=== PATIENT | male | born 1960 | race Caucasian/White ===

== ENCOUNTER 2025-01-24 20:14 | Inpatient (IN) | payer BC, MEDICAID, MEDICARE ==
[~2025-01-24] VITALS: Ht 165.1 cm; Wt 59.0 kg
[2025-01-24 21:03] LABS: BASOPHILS % 0.5 % (0.0-2.0); HEMOGLOBIN. 12.8 g/dL (14.0-18.0); LYMPHOCYTES % 26.5 % (20.0-50.0); MEAN CORPUSCULAR HEMOGLOBIN 32.4 pg (28.0-32.0); MEAN CORPUSCULAR HGB CONC 33.6 g/dL (31.0-37.0); MEAN CORPUSCULAR VOLUME 96.6 fL (80.0-94.0); MEAN PLATELET VOLUME 9.6 fl (7.4-10.4); MONOCYTES % 7.5 % (2.0-8.0); NEUTROPHILS % 63.5 % (40.0-76.0); PLATELET 156 x1000/uL (130-400); RED BLOOD CELL COUNT 3.93 mill/uL (4.7-6.1); RED CELL DISTRIBUTION WIDTH 12.9 % (11.6-14.6); WHITE BLOOD COUNT 7.9 x1000/uL (4.5-11.0)
[2025-01-24 21:11] LABS: CARBON DIOXIDE 29 mEq/L (21-32); CHLORIDE 103 mEq/L (98-107); POTASSIUM 4.1 mEq/L (3.5-5.1); SODIUM 140 mEq/L (136-145)
[2025-01-24 21:12] LABS: CALCIUM 8.3 mg/dL (8.7-10.4)
[2025-01-24] MEDS: VANCOMYCIN 1G PREMIX 200 ML IV SCH (21:13)
[2025-01-24] MEDS: MORPHINE SULFATE 4 MG/ML INJ (FOR IV/IM USE) IV ONE (21:13)
[2025-01-24] MEDS: LACTATED RINGERS 1,000 ML IV SCH (21:13)
[2025-01-24] MEDS: KETOROLAC 15MG/ML VIAL IV ONE (21:13)
[2025-01-24] MEDS: TETANUS, DIPHTHERIA, PERTUSSIS VAC/PF 0.5ML (>10YR OLD) IM ONE (21:15)
[2025-01-24 21:16] LABS: CREATININE 0.7 mg/dL (0.6-1.3); GLUCOSE 363 mg/dL (70-105)
[2025-01-24 21:17] LABS: TROPONIN I HIGH SENSITIVITY 8 ng/L (3.0-53); UREA NITROGEN BLOOD 10 mg/dL (9-23)
[2025-01-24 21:18] LABS: ALANINE AMINOTRANSFERASE 47 IU/L (10-49); ALBUMIN 3.5 g/dL (3.2-4.8); ASPARTATE AMINOTRANSFERASE 22 IU/L (<34); LACTIC ACID 2.9 mmol/L (0.4-2.0)
[2025-01-24 21:19] LABS: BETA HYDROXYBUTYRATE 0.1 mMol/L (0.0-0.3); BILIRUBIN TOTAL 0.3 mg/dL (0.1-1.0)
[2025-01-24 21:40] LABS: ERYTHROCYTE SEDIMENTATION RATE 12 mm/hr (0-20)
[2025-01-24] MEDS: LIDOCAINE HCL 1% 20ML VIAL INFIL ONE (22:25)
[2025-01-24] MEDS: PIPERACILLIN/TAZO 3.375G/50ML 50 ML IV SCH (23:24)
[2025-01-25] MEDS ORDERED: DEXTROSE 50% WATER 50ML SYRINGE IV PRN (03:45)
[2025-01-25] MEDS: HYDROCODONE/ACETAMINOPHEN 5/325MG TABLET PO PRN (04:04)
[2025-01-25 05:35] VITALS: BP 154/79; PULSE 70; RESP 17; TEMP 36.5
[2025-01-25] MEDS: PIPERACILLIN/TAZO 3.375G/50ML 50 ML IV SCH (06:49)
[2025-01-25] MEDS: BLOOD SUGAR DIAGNOSTIC STRIP TEST SCH (07:21)
[2025-01-25 08:00] VITALS: BP 132/79; PULSE 78; RESP 18; TEMP 36.2; O2SAT 100
[2025-01-25] MEDS: LOSARTAN 50 MG TABLET PO SCH (08:10)
[2025-01-25] MEDS: INSULIN LISPRO 100 UNITS/ML SUBCUT SCH (08:11)
[2025-01-25] MEDS: INSULIN GLARGINE 100 UNITS/ML SUBCUT SCH (09:12)
[2025-01-25] MEDS: VANCOMYCIN 750MG/250ML IV SCH (09:49)
[2025-01-25 10:49] LABS: BASOPHILS % 0.2 % (0.0-2.0); EOSINOPHILS % 2.2 % (0.0-5.0); HEMATOCRIT. 37.6 % (42.0-52.0); HEMOGLOBIN. 12.5 g/dL (14.0-18.0); LYMPHOCYTES % 20.1 % (20.0-50.0); MEAN CORPUSCULAR HEMOGLOBIN 31.5 pg (28.0-32.0); MEAN CORPUSCULAR HGB CONC 33.1 g/dL (31.0-37.0); MEAN CORPUSCULAR VOLUME 95.1 fL (80.0-94.0); MEAN PLATELET VOLUME 9.4 fl (7.4-10.4); MONOCYTES % 8.2 % (2.0-8.0); NEUTROPHILS % 69.3 % (40.0-76.0); PLATELET 144 x1000/uL (130-400); RED BLOOD CELL COUNT 3.96 mill/uL (4.7-6.1); RED CELL DISTRIBUTION WIDTH 12.9 % (11.6-14.6); WHITE BLOOD COUNT 7.2 x1000/uL (4.5-11.0)
[2025-01-25 11:01] LABS: CHLORIDE 101 mEq/L (98-107); POTASSIUM 3.8 mEq/L (3.5-5.1); SODIUM 138 mEq/L (136-145)
[2025-01-25 11:02] LABS: CALCIUM 8.6 mg/dL (8.7-10.4); CARBON DIOXIDE 32 mEq/L (21-32)
[2025-01-25 11:07] LABS: CREATININE 0.7 mg/dL (0.6-1.3); GLUCOSE 278 mg/dL (70-105); TRIGLYCERIDE 68 mg/dL (0-150); UREA NITROGEN BLOOD 7 mg/dL (9-23)
[2025-01-25 11:08] LABS: LDL CHOLESTEROL 35 mg/dL (5-100)
[2025-01-25 11:09] LABS: CHOLESTEROL 107 mg/dL (<200); HDL CHOLESTEROL 53 mg/dL (>55)
[2025-01-25 12:00] VITALS: BP 138/78; PULSE 77; RESP 18; TEMP 36.2; O2SAT 100
[2025-01-25] MEDS ORDERED: NALOXONE HCL 0.4MG/ML VIAL IV PRN (15:45)
[2025-01-25] MEDS: HYDROCODONE/ACETAMINOPHEN 10/325MG TABLET PO PRN (15:56)
[2025-01-25 16:00] VITALS: BP 146/76; PULSE 72; RESP 19; TEMP 36.3; O2SAT 100
[2025-01-25 20:00] VITALS: BP 145/81; PULSE 92; RESP 17; TEMP 36.4; O2SAT 95
[2025-01-26] VITALS: BP 100/66; PULSE 83; RESP 18; TEMP 36.4; O2SAT 97
[2025-01-26 04:00] VITALS: BP 105/60; PULSE 85; RESP 17; TEMP 36.4; O2SAT 97
[2025-01-26 06:28] LABS: CHLORIDE 102 mEq/L (98-107); POTASSIUM 3.7 mEq/L (3.5-5.1); SODIUM 140 mEq/L (136-145)
[2025-01-26 06:29] LABS: CALCIUM 8.5 mg/dL (8.7-10.4); CARBON DIOXIDE 31 mEq/L (21-32)
[2025-01-26 06:34] LABS: CREATININE 0.5 mg/dL (0.6-1.3); UREA NITROGEN BLOOD 7 mg/dL (9-23)
[2025-01-26 07:01] LABS: GLUCOSE 112 mg/dL (70-105)
[2025-01-26 08:00] VITALS: BP 97/51; PULSE 74; RESP 18; TEMP 36.4; O2SAT 97
[2025-01-26 12:00] VITALS: BP 126/69; PULSE 68; RESP 19; TEMP 36.1; O2SAT 99
[2025-01-26 16:00] VITALS: BP 136/77; PULSE 76; RESP 18; TEMP 36.3; O2SAT 97
[2025-01-26 20:00] VITALS: BP 150/76; PULSE 67; RESP 19; TEMP 36.1; O2SAT 96
[2025-01-26] MEDS: VANCOMYCIN 1GM/200ML PMX (BAXTER) IV SCH (22:15)
[2025-01-27] VITALS: BP 143/68; PULSE 80; RESP 16; TEMP 37.3; O2SAT 100
[2025-01-27 04:00] VITALS: BP 106/55; PULSE 74; RESP 18; TEMP 36.9; O2SAT 100
[2025-01-27 08:00] VITALS: BP 131/72; PULSE 73; RESP 18; TEMP 36.8; O2SAT 98
[2025-01-27 12:00] VITALS: BP 144/67; PULSE 76; RESP 18; TEMP 36.3; O2SAT 97
[2025-01-27 16:00] VITALS: BP 133/76; PULSE 74; RESP 18; TEMP 36.4; O2SAT 99
[2025-01-27 20:00] VITALS: BP 123/64; PULSE 84; RESP 20; TEMP 36.2; O2SAT 98
[2025-01-27] MEDS: BACITRACIN/POLYMYXIN B SULFATE OINT 15GM TOP SCH (21:00)
[2025-01-28] VITALS: BP 150/63; PULSE 83; RESP 20; TEMP 36.2; O2SAT 98
[2025-01-28 04:00] VITALS: BP 148/81; PULSE 78; RESP 20; TEMP 36.2; O2SAT 99
[2025-01-28 08:00] VITALS: BP 134/70; PULSE 80; RESP 18; TEMP 35.8; O2SAT 98
[2025-01-28] MEDS ORDERED: AMOX1TAB16 MT (11:59)
[2025-01-28 12:00] VITALS: BP 125/57; PULSE 80; RESP 18; TEMP 36; O2SAT 100
[2025-01-28] MEDS ORDERED: METF-414 MT (12:00)
[2025-01-28] MEDS ORDERED: GLIP5TAB22 MT (12:00)
[2025-01-28 14:29] VITALS: BP 134/78; PULSE 78; TEMP 97.8; O2SAT 98
[2025-01-28 16:00] VITALS: BP 137/63; PULSE 67; RESP 18; TEMP 36.2; O2SAT 100
== END 2025-01-28 18:18 | disposition home or self-care (01) | DRG 603 ==
LOC: ER 20:14 → EDBEDREQ 20:40 → 6EST 01-25 01:07 → EDBEDREQ 01-25 01:25 → EDBEDREQTM 01-25 01:25
PROVIDERS: ADMIT Internal Medicine; ATTEND Internal Medicine
PROC: 0H9GXZZ Drainage of Left Hand Skin, External Approach (ICD-10-PCS; principal; 2025-01-24)
DX: L02.512 Cutaneous abscess of left hand (principal); L03.012 Cellulitis of left finger; I10 Essential (primary) hypertension; E11.9 Type 2 diabetes mellitus without complications; S62.633A Displaced fracture of distal phalanx of left middle finger, initial encounter for closed fracture
CPT/HCPCS: 10060; 36415; 71045; 73130; 80048; 80053; 80061; 80202; 82010; 82962; 83036; 83605; 84484; 85025; 85651; 87070; 87077; 90715; 93005; 99285; J1815; J1885; J2270; J2543; J3370; J3490